=== PATIENT | female | born 1995 | race Two or more races ===

== ENCOUNTER 2023-03-25 18:16 | Emergency (ER) | payer OTHER ==
[2023-03-25 18:35] VITALS: BP 112/71; PULSE 85; RESP 18; TEMP 98.7; BMI 30.7
== END 2023-03-25 21:01 | disposition home or self-care (01) ==
LOC: JER 18:16
DX: N93.9 Abnormal uterine and vaginal bleeding, unspecified (principal)
CPT/HCPCS: 76830-TC; 99284-25

== ENCOUNTER 2023-07-26 17:31 | Emergency (ER) | payer OTHER ==
[2023-07-26 17:36] VITALS: BP 109/70; PULSE 68; RESP 18; TEMP 98.2; BMI 29.4
[2023-07-26] MEDS ORDERED: ACETAMINOPHEN 1000 MG/100 ML BAG IVPB ONE (19:56)
[2023-07-26] MEDS ORDERED: ACETAMINOPHEN 500 MG TABLET (FP) ONE (20:10)
[2023-07-26] MEDS ORDERED: ACETAMINOPHEN 500 MG TABLET (FP) PO ONE (20:24)
== END 2023-07-26 21:53 | disposition home or self-care (01) ==
LOC: JERFT 17:31 → JER 17:31 → JERFT 21:53
DX: S06.0X0A Concussion without loss of consciousness, initial encounter (principal); S59.902A Unspecified injury of left elbow, initial encounter; M54.2 Cervicalgia; M62.838 Other muscle spasm; W01.0XXA Fall on same level from slipping, tripping and stumbling without subsequent striking against object, initial encounter
CPT/HCPCS: 70450-TC; 72040-TC; 73070-TC-LT-FY; 99284-25